=== PATIENT | male | born 1970 | race Hispanic/Latino ===

== ENCOUNTER 2018-07-25 18:43 | Emergency (ER) | payer BC, OTHER ==
[~2018-07-25] VITALS: Ht 177.8 cm; Wt 95.3 kg
[~2018-07-25 18:43] MED LIST: CYCLOBENZAPRINE5 MG PO; MULTIPLE VITAM1 EAC1 PO; ULTRAM50 MG PO
[2018-07-25] MEDS ORDERED: KEFLEX500 MG PO (19:01)
[2018-07-25] MEDS ORDERED: NAPROSYN500 MG PO (19:01)
--- NOTE | 2018-07-25 20:39 | Diagnostic Imaging Report ---
EXAM: Left Lower Extremity Venous Duplex Ultrasound INDICATION: ^[id number] ^[id number] COMPARISON: None TECHNIQUE: Falcon scale, color Doppler and spectral waveform analysis of the unilateral lower extremity deep venous system was performed. FINDINGS: Common Femoral: Fully compressible with normal spontaneous waveforms. Proximal Greater Saphenous: Fully compressible. Femoral: Fully compressible with normal spontaneous waveforms. Normal response to augmentation. Proximal Deep Femoral: Normal spontaneous waveforms. Popliteal: Fully compressible with normal spontaneous waveforms. IMPRESSION: No evidence of deep venous thrombosis above the left calf. Signed by: Rubi Grossman MD on 07/25/2018 8:36 PM
== END 2018-07-25 20:33 | disposition home or self-care (01) ==
LOC: FSED 18:43
DX: L03.116 Cellulitis of left lower limb (principal)
CPT/HCPCS: 93971; 99283